=== PATIENT | female | born 1980 | race American Indian/Alaskan Native ===

== ENCOUNTER 2018-11-07 02:01 | Inpatient (IN) | payer OTHER ==
[2018-11-07] MEDS ORDERED: STADOL IV PRN (05:10)
[2018-11-07] MEDS ORDERED: AMPICILLIN/NS 2 GM/100 ML 2 GM/100 ML BAG IV ONE (05:10)
[2018-11-07] MEDS ORDERED: BRETHINE SUB-Q PRN (05:10)
[2018-11-07] MEDS ORDERED: BRETHINE IVP PRN (05:10)
[2018-11-07] MEDS ORDERED: XYLOCAINE 2% INFILTRATI ONE (05:10)
[2018-11-07] MEDS ORDERED: MINERAL OIL PO PRN (05:10)
[2018-11-07] MEDS ORDERED: SUBLIMAZE IV PRN (05:10)
[2018-11-07] MEDS: LACTATED RINGERS 1,000 ML IV SCH ×4 (05:32→14:40)
[2018-11-07] MEDS ORDERED: PITOCin/NS 20 UNIT/1000ML DRIP 20 UNITS/1,000 ML BAG IV SCH (06:00)
[2018-11-07] MEDS ORDERED: PITOCin/NS 30 UNIT/500ML 30 UNITS/500 ML BAG IV SCH ×2 (06:00)
[2018-11-07 06:11] LABS: Hemoglobin 9.9 gm/dl (10.1-14.3); Mean Corpuscular HGB Conc 33 % (30-34); Platelet Count 417 K/mm3 (140-440); Red Blood Count 4.76 M/mm3 (3.65-5.03); Red Cell Distribution Width 17.2 % (13.2-15.2)
[2018-11-07 06:22] LABS: Mean Corpuscular Volume 63 fl (79-97)
[2018-11-07 06:41] LABS: Hepatitis C Virus Antibody Non-Reactive (NonReactive)
--- NOTE | 2018-11-07 07:24 | Anesthesia Consultation ---
Anesthesia Consult and Med Hx Date of service: 11/07/18 - Airway Anesthetic Teeth Evaluation: Good ROM Head & Neck: Adequate Mental/Hyoid Distance: Adequate Mallampati Class: Class II Intubation Access Assessment: Probably Good - Pulmonary Exam CTA: Yes - Cardiac Exam Cardiac Exam: RRR - Pre-Operative Health Status ASA Pre-Surgery Classification: ASA2 Proposed Anesthetic Plan: Epidural - Pulmonary Hx Smoking: No Hx Asthma: No Hx Respiratory Symptoms: No SOB: No COPD: No Home Oxygen Therapy: No Hx Pneumonia: No Hx Sleep Apnea: No - Cardiovascular System Hx Hypertension: No Hx Coronary Artery Disease: No Hx Heart Attack/AMI: No Hx Angina: No Hx Percutaneous Transluminal Coronary Angioplasty (PTCA): No Hx Cardia Arrhythmia: No Hx Pacemaker: No Hx Internal Defibrillator: No Hx Valvular Heart Disease: No Hx Heart Murmur: No Hx Peripheral Vascular Disease: No - Central Nervous System Hx Neuromuscular Disorder: No Hx Seizures: No CVA: No Hx Back Pain: No Hx Psychiatric Problems: No - Gastrointestinal Hx Ulcer: No Hx Gastroesophageal Reflux Disease: No - Endocrine Hx Renal Disease: No Hx End Stage Renal Disease: No Hx Cirrhosis: No Hx Liver Disease: No Hx Insulin Dependent Diabetes: No Hx Non-Insulin Dependent Diabetes: No Hx Hypothyroidism: No Hx Hyperthyroidism: No - Hematic Hx Anemia: Yes (iron) Hx Sickle Cell Disease: No - Other Systems Hx Alcohol Use: No Hx Substance Use: No Hx Cancer: No Hx Obesity: No
--- NOTE | 2018-11-07 07:34 | History and Physical Report ---
History of Present Illness Date of examination: 11/07/18 Date of admission: 11/07/18 05:25 Chief complaint: contractions History of present illness: 38y/o @ 38+3 weeks presents in active labor with cervical dilation of 5cm. She denies leakage of fluid. The patient receives care @ [facility]. Lab documents that the patient is GBS negative. No other records are available. Past History Past Medical History: no pertinent history Past Surgical History: no surgical history Social history: single - Obstetrical History Expected Date of Delivery: 11/18/18 Actual Gestation: 38 Week(s) 3 Day(s) : 7 Para: 2 Medications and Allergies Allergies Allergy/AdvReac Type Severity Reaction Status Date / Time No Known Allergies Allergy Verified 11/07/18 05:16 Home Medications Medication Instructions Recorded Confirmed Last Taken Type RX: No Known Home Medications [No 11/07/18 11/07/18 Unknown History Reported Home Medications] Active Meds: Active Medications Butorphanol Tartrate (Stadol) 2 mg IV Q2H PRN PRN Reason: Pain , Severe (7-10) Ephedrine Sulfate (Ephedrine Sulfate) 10 mg IV Q2M PRN PRN Reason: Hypotension Fentanyl (Sublimaze) 100 mcg IV Q2H PRN PRN Reason: Labor Pain Last Admin: 11/07/18 05:38 Dose: 100 mcg Documented by: Oxytocin/Sodium Chloride (Pitocin/Ns 20 Unit/1000ml Drip) 20 units in 1,000 mls @ 125 mls/hr IV DIRECT OLIVIA Oxytocin/Sodium Chloride (Pitocin/Ns 30 Unit/500ml) 30 units in 500 mls @ 1 mls/hr IV TITR OLIVIA; Protocol Oxytocin/Sodium Chloride (Pitocin/Ns 30 Unit/500ml) 30 units in 500 mls @ 2 mls/hr IV TITR OLIVIA; Protocol Lactated Ringer's (Lactated Ringers) 1,000 mls @ 125 mls/hr IV DIRECT OLIVIA Last Admin: 11/07/18 07:28 Dose: 125 mls/hr Documented by: Ampicillin Sodium (Ampicillin/Ns 1 Gm/50 Ml) 1 gm in 50 mls @ 100 mls/hr IV Q4HR OLIVIA; Protocol Fentanyl/Bupivacaine/Sodium Chlor (Fentanyl-Bupiv 2 Mcg/Ml-0.125%) 200 mcg in 100 mls @ 12 mls/hr EPIDURAL TITR OLIVIA; Protocol Mineral Oil (Mineral Oil) 30 ml PO QHS PRN PRN Reason: Constipation Naloxone HCl (Narcan 2 Mg/2 Ml) 0.2 mg IV Q5M PRN PRN Reason: Respiratory sedation Terbutaline Sulfate (Brethine) 0.25 mg SUB-Q ONCE PRN PRN Reason: Hyperstimulation/Hypertonicity Terbutaline Sulfate (Brethine) 0.25 mg IVP ONCE PRN PRN Reason: Hyperstimulation/Hypertonicity Review of Systems All systems: negative Genitourinary: pelvic pain, contractions - Vital Signs Vital signs: Vital Signs Pulse BP 78 151/93 11/07/18 02:28 11/07/18 02:28 Temp Pulse Resp BP Pulse Ox 97.4 F L 93 H 18 125/58 99 11/07/18 06:00 11/07/18 07:31 11/07/18 06:38 11/07/18 07:31 11/07/18 07:31 - Physical Exam Breasts: Positive: deferred Cardiovascular: Regular rate Lungs: Positive: Clear to auscultation Abdomen: Positive: normal appearance Results Result Diagrams: 11/07/18 05:30 Abnormal lab results 11/07/18 Range/Units 05:30 Hgb 9.9 L (10.1-14.3) gm/dl Hct 30.0 L (30.3-42.9) % MCV 63 L (79-97) fl MCH 21 L (28-32) pg RDW 17.2 H (13.2-15.2) % All other labs normal. Assessment and Plan - Patient Problems (1) Active labor at term Current Visit: Yes Status: Acute Plan to address problem: admit for labor
[2018-11-07] MEDS ORDERED: MARCAINE 0.25% INFILTRATI ONE (07:55)
[2018-11-07] MEDS ORDERED: NARCAN 2 MG/2 ML IV PRN (08:00)
[2018-11-07] MEDS ORDERED: fentaNYL-BUPIV 2 MCG/ML-0.125% 200 MCG/100 ML BAG EPIDURAL SCH (08:00)
[2018-11-07] MEDS ORDERED: AMPICILLIN/NS 1 GM/50 ML 1 GM/50 ML BAG IV SCH (10:00)
--- NOTE | 2018-11-07 16:11 | Procedure Note ---
OB Delivery Note - Delivery Date of Delivery: 11/07/18 Surgeon: DOC MARC Estimated blood loss: 100cc - Vaginal Delivery presentation: vertex Delivery position: OA Intrapartum events: mult.variable deceleratio Delivery augmentation: pitocin Delivery monitor: external FHT, external uterine Route of delivery: Delivery placenta: spontaneous Delivery cord: nuchal cord, 3 umbilical vessels Episiotomy: none Delivery laceration: none Anesthesia: epidural - Infant A at 1 minute: 8 at 5 minutes: 9 Gender: Female (weight 6lbs 12oz)
[2018-11-07] MEDS ORDERED: TYLENOL PO PRN (16:12)
[2018-11-07] MEDS ORDERED: ZOFRAN IV PRN (16:12)
[2018-11-07] MEDS ORDERED: BENADRYL PO PRN (16:12)
[2018-11-07] MEDS ORDERED: TUCKS PAD TP PRN (16:12)
[2018-11-07] MEDS ORDERED: MILK OF MAGNESIA PO PRN (16:12)
[2018-11-07] MEDS ORDERED: DULCOLAX PR PRN (16:12)
[2018-11-07] MEDS ORDERED: PHENERGAN PR PRN (16:12)
[2018-11-07] MEDS ORDERED: PHENERGAN PO PRN (16:12)
[2018-11-07] MEDS ORDERED: LANSINOH TP PRN (16:12)
[2018-11-07] MEDS ORDERED: NORCO 5/325 PO PRN (16:12)
[2018-11-07] MEDS ORDERED: SODIUM CHLORIDE FLUSH SYRINGE 10 ML IV NR (17:00)
[2018-11-07] MEDS: IBUPROFEN PO SCH ×2 (19:40→22:50)
[2018-11-07 22:12] LABS: Bilirubin,Urine NEG (Negative); Blood,Urine LG (Negative); Color,Urine Straw (Yellow); Urobilinogen,Urine < 2.0 mg/dL (<2.0)
[2018-11-07 22:13] LABS: RBC,Urine > 182.0 /HPF (0.0-6.0)
[2018-11-07 22:19] LABS: Amphetamine Screen,Urine PRESUMPTIVE NEGATIVE; Benzodiazepines Screen,Urine PRESUMPTIVE NEGATIVE; Cannabinoid Screen,Urine PRESUMPTIVE NEGATIVE; Cocaine Screen,Urine PRESUMPTIVE NEGATIVE; Methadone Screen,Urine PRESUMPTIVE NEGATIVE; Opiate Screen,Urine PRESUMPTIVE NEGATIVE
[2018-11-08] MEDS: IBUPROFEN PO SCH ×3 (04:26→23:30)
[2018-11-08 04:47] LABS: Hematocrit 25.8 % (30.3-42.9); Hemoglobin 8.6 gm/dl (10.1-14.3)
--- NOTE | 2018-11-08 08:59 | Progress Note ---
Assessment and Plan - Patient Problems (1) Active labor at term Current Visit: Yes Status: Acute Plan to address problem: patient doing well discharge home Subjective - Subjective Date of service: 11/08/18 Interval history: Patient without any complaints. Pain well controlled. Tolerating regular diet Patient reports: appetite normal, voiding normally, pain well controlled Donnelly: doing well Objective - Vital Signs Latest vital signs: Vital Signs Temp Pulse Resp BP Pulse Ox 11/08/18 00:12 98.0 F 72 20 131/74 97 11/07/18 20:40 98.3 F 11/07/18 18:19 100.0 F H 95 H 16 138/73 97 11/07/18 17:25 105 H 141/71 11/07/18 17:23 99.4 F 20 11/07/18 17:09 104 H 158/80 11/07/18 16:39 97 H 152/82 11/07/18 16:36 109 H 159/89 11/07/18 16:09 104 H 142/73 11/07/18 15:40 123 H 140/91 11/07/18 15:09 96 H 148/78 11/07/18 14:39 98 H 144/89 11/07/18 14:11 85 137/73 11/07/18 13:40 80 150/76 11/07/18 13:09 95 H 142/88 11/07/18 12:39 86 133/83 11/07/18 12:04 98.9 F 20 11/07/18 12:01 89 100 11/07/18 11:56 82 98 11/07/18 11:51 79 100 11/07/18 11:46 73 98 11/07/18 11:41 81 97 11/07/18 11:40 71 124/61 11/07/18 11:36 82 97 11/07/18 11:31 73 98 11/07/18 11:26 83 99 11/07/18 11:21 79 98 11/07/18 11:16 90 100 11/07/18 11:11 78 100 11/07/18 11:09 86 122/78 11/07/18 11:06 84 99 11/07/18 11:01 83 99 11/07/18 10:56 92 H 99 11/07/18 10:51 79 100 11/07/18 10:46 93 H 99 11/07/18 10:41 93 H 99 11/07/18 10:40 82 131/78 11/07/18 10:36 88 98 11/07/18 10:31 88 99 11/07/18 10:26 87 99 11/07/18 10:21 82 99 11/07/18 10:16 89 99 11/07/18 10:11 85 99 11/07/18 10:09 77 148/80 11/07/18 10:06 80 98 11/07/18 10:01 81 100 11/07/18 09:56 82 100 11/07/18 09:51 81 98 11/07/18 09:46 81 99 11/07/18 09:41 81 99 11/07/18 09:39 80 136/78 11/07/18 09:36 81 99 11/07/18 09:31 80 99 11/07/18 09:26 78 99 11/07/18 09:21 84 99 11/07/18 09:16 83 100 11/07/18 09:11 84 138/68 99 11/07/18 09:06 78 100 11/07/18 09:01 80 99 Intake and Output 11/07/18 11/08/18 11/08/18 22:59 06:59 14:59 Intake Total 9 480 Output Total 650 400 Balance -641 80 Intake: IV 9 PITOCin/NS 30 UNIT/500ML 9 30 units In 500 ml @ 2 mls/hr IV TITR OLIVIA Rx#: [id number] Intake, Free Water 480 Output: Urine 650 400 Void 650 400 Other: Total, Output Amount 350 400 # Voids Void 1 Estimated Blood Loss 100 - Exam Uterus: Present: normal, firm - Labs Labs: Abnormal lab results 11/07/18 11/08/18 Range/Units Unknown 04:28 Hgb 8.6 L (10.1-14.3) gm/dl Hct 25.8 L (30.3-42.9) % Urine pH 8.0 H (5.0-7.0) Urine WBC (Auto) 16.0 H (0.0-6.0) /HPF
--- NOTE | 2018-11-08 09:02 | Discharge Summary ---
Providers - Providers Date of Admission: 11/07/18 16:12 Date of discharge: 11/08/18 Attending physician: DOC MARC Primary care physician: [employer] [employer] Hospitalization Reason for admission: active labor Delivery: Discharge diagnosis: IUP at term delivered Hospital course: Patient admitted in active labor. Had a . uncomplicated. Condition at discharge: Good Disposition: DC-01 TO HOME OR SELFCARE - Discharge Diagnoses (1) Active labor at term Status: Acute Plan - Discharge Medications Prescriptions: Ibuprofen [Motrin] 800 mg PO Q8HR PRN #60 tablet PRN Reason: Pain, Mild (1-3) HYDROcodone/APAP 5-325 [Concan 5/325] 1 each PO Q6HR PRN #20 tablet PRN Reason: Pain - Provider Discharge Summary Activity: no sex for 6 weeks, no heavy lifting 4 weeks, no strenuous exercise Diet: routine Instructions: routine Additional instructions: [] Smoking cessation referral if applicable(refer to patient education folder for contact #) [] Refer to [facility] Booklet Call your doctor immediately for: * Fever > 100.5 * Heavy vaginal bleeding ( >1 pad per hour) * Severe persistent headache * Shortness of breath * Reddened, hot, painful area to leg or breast * schedule visit in 4 weeks - Follow up plan
[2018-11-09] MEDS: IBUPROFEN PO SCH ×2 (05:28→12:13)
[2018-11-09 15:23] VITALS: BP 132/83
== END 2018-11-09 16:50 | disposition home or self-care (01) | DRG 775 ==
LOC: TRG 02:01 → LD 05:25 → TRG 05:25 → OBSVTOIN 16:12 → OB 18:32
PROVIDERS: ADMIT Obstetrics & Gynecology; ATTEND Obstetrics & Gynecology
PROC: 10E0XZZ Delivery of Products of Conception, External Approach (ICD-10-PCS; principal; 2018-11-07)
PROC: 3E0R3BZ Introduction of Anesthetic Agent into Spinal Canal, Percutaneous Approach (ICD-10-PCS; 2018-11-07)
PROC: 00HU33Z Insertion of Infusion Device into Spinal Canal, Percutaneous Approach (ICD-10-PCS; 2018-11-07)
DX: O76 Abnormality in fetal heart rate and rhythm complicating labor and delivery (principal); O69.81X0 Labor and delivery complicated by cord around neck, without compression, not applicable or unspecified; Z37.0 Single live birth; Z3A.38 38 weeks gestation of pregnancy
CPT/HCPCS: 36415; 80307; 81001; 85014; 85018; 85027; 86592; 86706; 86762; 86803; 86850; 86900; 86901; 87086; 87806; G0378; A6250; J0595; J2590; J3010; J7120